=== PATIENT | male | born 1980 ===

== ENCOUNTER 2016-09-15 05:34 | Emergency (ER) | payer SELFPAY ==
--- NOTE | 2016-09-15 07:14 | Emergency Department Report ---
HPI - General Chief Complaint: Psych Time Seen by Provider: 09/15/16 06:09 - HPI HPI: This is a 36-year-old -[place] male who presents to the emergency department by EMS with the need for a mental health evaluation. The patient has some psychiatric conditions that have required inpatient admission in the past. He says that the diagnosis appears to always be changing in between schizophrenia, schizoaffective disorder, and bipolar disorder. Patient says he came in by EMS because he wants to make sure that he does not harm himself. He has an issue at home where he is constantly "banging doors" and is concerned that eventually he will hurt himself such as hurting his hand. When he is asked why he cannot just stop "banging doors" he says that it is an urge that he cannot control. He denies to any auditory hallucinations or visual hallucinations but then mentions that it is like there are people there around him telling him to do it but there is no one actually there. He denies any suicidal or homicidal ideations. Patient says that he feels like his memory has been wiped at some point and that he is having an identity crisis. The patient takes oxcarbazepine, and says he is compliant with this. ED Past Medical Hx - Past Medical History Previous Medical History?: Yes Hx Psychiatric Treatment: Yes - Social History Smoking Status: Unknown if ever smoked Substance Use Type: Prescribed ED Review of Systems ROS: Stated complaint: MH EVAL Other details as noted in HPI Comment: All other systems reviewed and negative Constitutional: denies: chills, fever Eyes: denies: eye pain, eye discharge, vision change ENT: denies: ear pain, throat pain Respiratory: denies: cough, shortness of breath, wheezing Cardiovascular: denies: chest pain, palpitations Gastrointestinal: denies: abdominal pain, nausea, diarrhea Genitourinary: denies: urgency, dysuria Musculoskeletal: denies: back pain, joint swelling, arthralgia Skin: denies: rash, lesions Neurological: denies: headache, weakness, paresthesias Psychiatric: auditory hallucinations. denies: homicidal thoughts, suicidal thoughts Physical Exam - Physical Exam Vital Signs: Vital Signs 09/15/16 09/15/16 09/15/16 06:13 06:19 06:59 Temperature 97.8 F 98.8 F Pulse Rate 74 74 Respiratory 18 18 18 Rate Blood Pressure 149/80 Blood Pressure 149/80 [Left] O2 Sat by Pulse 100 100 100 Oximetry Physical Exam: GENERAL: The patient is well-developed well-nourished. HEENT: Normocephalic. Atraumatic. Extraocular motions are intact. Patient has moist mucous membranes. Pupils equal reactive to light bilaterally. NECK: Supple. Trachea is midline. CHEST/LUNGS: Clear to auscultation. There is no respiratory distress noted. HEART/CARDIOVASCULAR: Regular. There is no tachycardia. There is no gallop rub or murmur. ABDOMEN: Abdomen is soft, nontender. Patient has normal bowel sounds. There is no abdominal distention. SKIN: There is no rash. There is no edema. There is no diaphoresis. NEURO: The patient is awake, alert, and oriented. The patient is cooperative. The patient has no focal neurologic deficits. The patient has normal speech. MUSCULOSKELETAL: There is no tenderness or deformity. There is no limitation range of motion. There is no evidence of acute injury. ED Course Vital Signs 09/15/16 09/15/16 09/15/16 06:13 06:19 06:59 Temperature 97.8 F 98.8 F Pulse Rate 74 74 Respiratory 18 18 18 Rate Blood Pressure 149/80 Blood Pressure 149/80 [Left] O2 Sat by Pulse 100 100 100 Oximetry ED Medical Decision Making - Lab Data Result diagrams: 09/15/16 07:15 09/15/16 07:15 - Medical Decision Making This is a 36-year-old male who presents to the emergency department by EMS for a mental health evaluation. The patient has a history of schizophrenia versus bipolar disorder. Patient says that he is constantly banging around on doors and furniture and that he is either unable to resist doing it because of an urge versus being told to do it by voices in his head. Patient is calm at first but does appear to have some disorganized thoughts. Patient was made a 1013 secondary to the fact that he is unable to control himself from causing bodily damage. However shortly after I finished evaluating the patient the first time, the patient became more agitated and required some isolation. Since labs show a mild leukocytosis but there is no signs of infection. No electrolyte, renal or glucose abnormalities. Blood alcohol is negative. Currently awaiting urine drug screen and urinalysis, however I do not believe that any of the results found from the urine would cause him to be medically unsuitable for psychiatric placement. Personal and feel the patient is currently medically cleared but if there is any further urinary tract infection he will be treated with antibiotics. A 1013 has been filled out and the crisis therapist has been contacted to assist with placement. - Differential Diagnosis schizophrenia, schizoaffective, bipolar, substance abuse Critical Care Time: No Critical care attestation.: If time is entered above; I have spent that time in minutes in the direct care of this critically ill patient, excluding procedure time. ED Disposition Clinical Impression: History of schizophrenia Psychosis Qualifiers: Psychosis type: unspecified psychosis type Qualified Code(s): F29 - Unspecified psychosis not due to a substance or known physiological condition Disposition: DC/TX PSY HOSP/PSY UNIT Is pt being admited?: No Condition: Stable Time of Disposition: 10:54
[2016-09-15 07:25] LABS: Basophils % (Auto) 0.6 % (0.0-1.8); Eosinophils % (Auto) 1.8 % (0.0-4.3); Hematocrit 34.9 % (35.5-45.6); Hemoglobin 11.1 gm/dl (11.8-15.2); Mean Corpuscular HGB Conc 32 % (32-34); Mean Corpuscular Hemoglobin 27 pg (28-32); Mean Corpuscular Volume 85 fl (84-94); Platelet Count 327 K/mm3 (140-440); Red Blood Count 4.13 M/mm3 (3.65-5.03); Red Cell Distribution Width 17.8 % (13.2-15.2); White Blood Count 13.1 K/mm3 (4.5-11.0)
[2016-09-15 07:44] LABS: Anion Gap 16 mmol/L; BUN/Creatinine Ratio 18.18; Blood Urea Nitrogen 20 mg/dL (9-20); Calcium 9.1 mg/dL (8.4-10.2); Carbon Dioxide 26 mmol/L (22-30); Chloride 99.8 mmol/L (98-107); Glucose 99 mg/dL (75-100); Potassium 3.8 mmol/L (3.6-5.0); Sodium 138 mmol/L (137-145)
[2016-09-16 10:43] LABS: Bilirubin,Urine NEG (Negative); Blood,Urine NEG (Negative); Ketones,Urine NEG (Negative); Leukocyte Esterase,Urine NEG (Negative); Nitrite,Urine NEG (Negative); Protein,Urine <15 mg/dL mg/dL (Negative); Urobilinogen,Urine < 2.0 mg/dL (<2.0); WBC,Urine < 1.0 /HPF (0.0-6.0)
[2016-09-16 10:57] LABS: Urine Drugs of Abuse Note Disclamer
[2016-09-16] MEDS ORDERED: NORVASC PO SCH (22:00)
[2016-09-16] MEDS ORDERED: COGENTIN PO SCH (22:00)
[2016-09-16] MEDS: PROLIXIN HCL PO SCH (23:00)
[2016-09-16] MEDS: HCTZ PO SCH (23:13)
[2016-09-16] MEDS: COGENTIN PO SCH (23:14)
[2016-09-16] MEDS: NORVASC PO SCH (23:16)
[2016-09-17] MEDS: COGENTIN PO SCH (09:56)
[2016-09-17] MEDS: NORVASC PO SCH (09:56)
[2016-09-17] MEDS: PROLIXIN HCL PO SCH (09:56)
[2016-09-17] MEDS: HCTZ PO SCH (09:56)
--- NOTE | 2016-09-17 14:50 | Event Note ---
Date: 09/17/16 Vital signs reviewed. Await psychiatric placement. Vital Signs 09/15/16 09/15/16 09/15/16 06:13 06:19 06:59 Temperature 97.8 F 98.8 F Pulse Rate 74 74 Respiratory 18 18 18 Rate Blood Pressure 149/80 Blood Pressure 149/80 [Left] O2 Sat by Pulse 100 100 100 Oximetry 09/15/16 09/16/16 09/16/16 07:28 10:00 10:34 Temperature Pulse Rate 77 Respiratory 18 18 18 Rate Blood Pressure Blood Pressure 171/90 [Left] O2 Sat by Pulse 100 98 100 Oximetry 09/16/16 09/17/16 09/17/16 22:00 08:03 09:56 Temperature 98.6 F 98.2 F Pulse Rate 60 72 Respiratory 18 18 18 Rate Blood Pressure 135/69 Blood Pressure 143/65 135/69 [Left] O2 Sat by Pulse 99 99 99 Oximetry
[2016-09-18] MEDS: COGENTIN PO SCH ×3 (00:06→22:00)
[2016-09-18] MEDS: HCTZ PO SCH (11:04)
[2016-09-18] MEDS: NORVASC PO SCH (11:04)
[2016-09-18] MEDS: PROLIXIN HCL PO SCH (11:05)
[2016-09-18] MEDS ORDERED: GEODON IM ONE (14:11)
--- NOTE | 2016-09-18 14:15 | Emergency Department Report ---
Blank Doc - Documentation Documentation: Patient's provider brings to my attention that he is agitated. I did review his records. He has acute psychosis with chronic schizophrenia/bipolar disorder. He has been given his Prolixin as well as his blood pressure medicine. He had a mildly elevated white blood cell count. I do not see any contraindications to psychiatric admission. No when necessary meds were ordered. I have ordered Geodon 10 IM now and every 12 hours as necessary. Placement should proceed.
[2016-09-18] MEDS ORDERED: WATER FOR INJ (PF) 10 ML ONE (14:16)
--- NOTE | 2016-09-19 01:31 | Event Note ---
Date: 09/19/16 Resting comfortably. Vital signs reviewed. Awaiting transfer. Vital Signs 09/15/16 09/15/16 09/15/16 06:13 06:19 06:59 Temperature 97.8 F 98.8 F Pulse Rate 74 74 Respiratory 18 18 18 Rate Blood Pressure 149/80 Blood Pressure 149/80 [Left] O2 Sat by Pulse 100 100 100 Oximetry 09/15/16 09/16/16 09/16/16 07:28 10:00 10:34 Temperature Pulse Rate 77 Respiratory 18 18 18 Rate Blood Pressure Blood Pressure 171/90 [Left] O2 Sat by Pulse 100 98 100 Oximetry 09/16/16 09/17/16 09/17/16 22:00 08:03 09:56 Temperature 98.6 F 98.2 F Pulse Rate 60 72 Respiratory 18 18 18 Rate Blood Pressure 135/69 Blood Pressure 143/65 135/69 [Left] O2 Sat by Pulse 99 99 99 Oximetry 09/17/16 09/18/16 09/18/16 19:45 09:28 09:29 Temperature 97.9 F Pulse Rate 71 Respiratory 20 16 16 Rate Blood Pressure Blood Pressure 155/84 [Left] O2 Sat by Pulse 100 100 Oximetry 09/18/16 09/18/16 09/18/16 11:04 20:13 21:00 Temperature 97.9 F Pulse Rate 71 80 Respiratory 20 20 Rate Blood Pressure 155/84 Blood Pressure 165/85 [Left] O2 Sat by Pulse 100 Oximetry
[2016-09-19] MEDS: GEODON IM PRN (09:10)
[2016-09-19] MEDS: NORVASC PO SCH (09:31)
[2016-09-19] MEDS: HCTZ PO SCH (09:31)
[2016-09-19] MEDS: COGENTIN PO SCH ×2 (09:31→22:27)
[2016-09-19] MEDS: PROLIXIN HCL PO SCH (09:31)
[2016-09-20] MEDS ORDERED: GEODON IM ONE (03:46)
[2016-09-20] MEDS ORDERED: WATER FOR INJ (PF) 10 ML ONE (03:48)
[2016-09-20] MEDS: GEODON IM PRN (04:32)
[2016-09-20] MEDS: HCTZ PO SCH (11:40)
[2016-09-20] MEDS: NORVASC PO SCH (11:40)
[2016-09-20] MEDS: COGENTIN PO SCH (11:40)
[2016-09-20 11:41] VITALS: BP 152/91
[2016-09-20] MEDS: PROLIXIN HCL PO SCH (11:41)
== END 2016-09-20 13:47 ==
LOC: ED 05:34 → EEVIPCON 05:34 → ED 09-20 13:47
DX: F29 Unspecified psychosis not due to a substance or known physiological condition (principal); F20.9 Schizophrenia, unspecified
CPT/HCPCS: 36415; 80048; 80307; 81001; 85025; 96372; 99285; G0480; J3486; 80320

== ENCOUNTER 2017-01-21 00:01 | Emergency (ER) | payer SELFPAY ==
[2017-01-21 01:07] LABS: Urine Drugs of Abuse Note Disclamer
[2017-01-21 01:13] LABS: Anion Gap 18 mmol/L; BUN/Creatinine Ratio 11.66; Blood Urea Nitrogen 14 mg/dL (9-20); Calcium 9.3 mg/dL (8.4-10.2); Carbon Dioxide 22 mmol/L (22-30); Chloride 98.4 mmol/L (98-107); Glucose 110 mg/dL (75-100); Potassium 3.9 mmol/L (3.6-5.0); Sodium 134 mmol/L (137-145)
[2017-01-21 01:24] LABS: Basophils % (Auto) 0.5 % (0.0-1.8); Eosinophils % (Auto) 1.5 % (0.0-4.3); Hematocrit 39.5 % (35.5-45.6); Hemoglobin 12.8 gm/dl (11.8-15.2); Mean Corpuscular HGB Conc 32 % (32-34); Mean Corpuscular Hemoglobin 27 pg (28-32); Mean Corpuscular Volume 85 fl (84-94); Platelet Count 266 K/mm3 (140-440); Red Blood Count 4.65 M/mm3 (3.65-5.03); Red Cell Distribution Width 15.7 % (13.2-15.2); White Blood Count 14.6 K/mm3 (4.5-11.0)
[2017-01-21 01:26] LABS: Bilirubin,Urine NEG (Negative); Blood,Urine NEG (Negative); Ketones,Urine NEG (Negative); Leukocyte Esterase,Urine NEG (Negative); Mucus,Urine FEW /HPF; Nitrite,Urine NEG (Negative); Urobilinogen,Urine < 2.0 mg/dL (<2.0)
[2017-01-21] MEDS ORDERED: CATAPRES PO ONE (12:03)
--- NOTE | 2017-01-21 12:08 | Emergency Department Report ---
HPI - General Chief Complaint: Psych Time Seen by Provider: 01/21/17 11:55 - HPI HPI: Room 6 The patient is a 36-year-old male presenting with a chief complaint. The patient appears to be rambling states that Mother's Day he suffers from insomnia. Patient states he plays the radial all night long. Patient states he feels though his family is "playing games" with him. The patient will not go into details. Patient states he been compliant with his psychiatric medication. The patient continues to ramble and sometimes incoherently. Patient denies suicidal or homicidal ideation. Patient denies auditory or visual hallucinations Location: Mental state Duration: Unknown Quality: [see above] Severity: Moderate Modifying factors: Unknown Context: [see above] Mode of transportation: [not driving] ED Past Medical Hx - Past Medical History Previous Medical History?: Yes Hx Hypertension: Yes Hx Psychiatric Treatment: Yes (bipolar) - Surgical History Past Surgical History?: No - Family History Family history: no significant - Social History Smoking Status: Never Smoker Substance Use Type: None (denies illicit drug use) - Medications Home Medications: Home Medications Medication Instructions Recorded Confirmed Last Taken Type Benztropine [Cogentin] 2 mg PO BID 09/16/16 09/16/16 Unknown History Hydrochlorothiazide 12.5 mg PO DAILY 09/16/16 09/16/16 Unknown History [Hydrochlorothiazide] amLODIPine [Norvasc] 10 mg PO DAILY 09/16/16 09/16/16 Unknown History fluPHENAZine HCL [fluPHENAZine] 10 mg PO TID 09/16/16 09/16/16 Unknown History ED Review of Systems ROS: Stated complaint: MH EVAL/BIPOLAR/CAN'T SLEEP Other details as noted in HPI Comment: All other systems reviewed and negative Constitutional: denies: chills, fever Eyes: denies: eye pain, eye discharge, vision change ENT: denies: ear pain, throat pain Respiratory: denies: cough, shortness of breath, wheezing Cardiovascular: denies: chest pain, palpitations Endocrine: no symptoms reported Gastrointestinal: denies: abdominal pain, nausea, diarrhea Genitourinary: denies: urgency, dysuria Musculoskeletal: denies: back pain, joint swelling, arthralgia Skin: denies: rash, lesions Neurological: denies: headache, weakness, paresthesias Psychiatric: other (patient appears paranoid). denies: auditory hallucinations , visual hallucinations, homicidal thoughts, suicidal thoughts Hematological/Lymphatic: denies: easy bleeding, easy bruising Physical Exam - Physical Exam Vital Signs: Vital Signs 01/21/17 00:13 Temperature 98.9 F Pulse Rate 103 H Respiratory 18 Rate Blood Pressure 182/100 O2 Sat by Pulse 100 Oximetry Physical Exam: GENERAL: The patient is well-developed well-nourished male lying on stretcher rambling with occasionally incoherent speech. [] HEENT: Normocephalic. Atraumatic. Extraocular motions are intact. Patient has moist mucous membranes. NECK: Supple. Trachea midline CHEST/LUNGS: Clear to auscultation. There is no respiratory distress noted. HEART/CARDIOVASCULAR: Regular. There is no tachycardia. There is no gallop rub or murmur. ABDOMEN: Abdomen is soft, nontender. Patient has normal bowel sounds. There is no abdominal distention. SKIN: There is no rash. There is no edema. There is no diaphoresis. NEURO: The patient is awake, and alert. The patient is cooperative. The patient has no focal neurologic deficits. The patient has normal speech. Cranial nerves II through XII grossly intact, no drift. MUSCULOSKELETAL: There is no evidence of acute injury. ED Course Vital Signs 01/21/17 00:13 Temperature 98.9 F Pulse Rate 103 H Respiratory 18 Rate Blood Pressure 182/100 O2 Sat by Pulse 100 Oximetry ED Medical Decision Making - Lab Data Result diagrams: 01/21/17 00:35 01/21/17 00:35 Laboratory Tests 01/21/17 01/21/17 01/21/17 00:35 00:35 00:35 WBC 14.6 H RBC 4.65 Hgb 12.8 Hct 39.5 MCV 85 MCH 27 L MCHC 32 RDW 15.7 H Plt Count 266 Lymph % (Auto) 29.2 Dawson % (Auto) 5.5 Eos % (Auto) 1.5 Baso % (Auto) 0.5 Lymph # 4.3 Dawson # 0.8 Eos # 0.2 Baso # 0.1 Seg Neutrophils % 63.3 Seg Neutrophils # 9.2 H Sodium 134 L Potassium 3.9 Chloride 98.4 Carbon Dioxide 22 Anion Gap 18 BUN 14 Creatinine 1.2 Estimated GFR > 60 BUN/Creatinine Ratio 11.66 Glucose 110 H Calcium 9.3 Urine Color Urine Turbidity Urine pH Ur Specific Ceiba Urine Protein Urine Glucose (UA) Urine Ketones Urine Blood Urine Nitrite Urine Bilirubin Urine Urobilinogen Ur Leukocyte Esterase Urine WBC (Auto) Urine RBC (Auto) U Epithel Cells (Auto) Urine Mucus Urine Opiates Screen Urine Methadone Screen Ur Barbiturates Screen Ur Phencyclidine Scrn Ur Amphetamines Screen U Benzodiazepines Scrn Urine Cocaine Screen U Marijuana (THC) Screen Drugs of Abuse Note Plasma/Serum Alcohol < 0.01 01/21/17 01/21/17 00:45 00:45 WBC RBC Hgb Hct MCV MCH MCHC RDW Plt Count Lymph % (Auto) Dawson % (Auto) Eos % (Auto) Baso % (Auto) Lymph # Dawson # Eos # Baso # Seg Neutrophils % Seg Neutrophils # Sodium Potassium Chloride Carbon Dioxide Anion Gap BUN Creatinine Estimated GFR BUN/Creatinine Ratio Glucose Calcium Urine Color Straw Urine Turbidity Clear Urine pH 6.0 Ur Specific Ceiba 1.004 Urine Protein 30 mg/dl Urine Glucose (UA) Neg Urine Ketones Neg Urine Blood Neg Urine Nitrite Neg Urine Bilirubin Neg Urine Urobilinogen < 2.0 Ur Leukocyte Esterase Neg Urine WBC (Auto) 1.0 Urine RBC (Auto) 2.0 U Epithel Cells (Auto) < 1.0 Urine Mucus Few Urine Opiates Screen Presumptive negative Urine Methadone Screen Presumptive negative Ur Barbiturates Screen Presumptive negative Ur Phencyclidine Scrn Presumptive negative Ur Amphetamines Screen Presumptive negative U Benzodiazepines Scrn Presumptive negative Urine Cocaine Screen Presumptive negative U Marijuana (THC) Screen Presumptive negative Drugs of Abuse Note Disclamer Plasma/Serum Alcohol - Differential Diagnosis schizophrenia Critical care attestation.: If time is entered above; I have spent that time in minutes in the direct care of this critically ill patient, excluding procedure time. ED Disposition Clinical Impression: Schizophrenia Disposition: DC/TX PSY HOSP/PSY UNIT Is pt being admited?: No Does the pt Need Aspirin: No Condition: Stable Referrals: PRIMARY CARE, [Primary Care Provider] - 3-5 Days Time of Disposition: 12:45 (awaiting acceptance)
[2017-01-21] MEDS ORDERED: ATIVAN IM PRN (12:43)
[2017-01-21] MEDS ORDERED: BENADRYL IM PRN (12:43)
[2017-01-21] MEDS ORDERED: HALDOL IM PRN (12:43)
--- NOTE | 2017-01-21 14:23 | Consultation ---
History of Present Illness - Reason for Consult Consult date: 01/21/17 Reason for consult: Mental Health Evaluation Requesting physician: GOOD DODD - Chief Complaint Chief complaint: "I just want sleep" - History of Present Psychiatric Illness The patient is a 36-year-old AA male presenting with a chief complaint of insomnia. Today patient is calm and cooperative during the assessment. He stated that he has not slept since Saturday01/16/2017. He stated that he wants to "rest." Patient has an hx of Schizoaffective DO and have not taken his medications in a couple days, per the patient. He did not want to discuss anything other than him getting a "sleep aid." He denies SI/HI's, AVH's, depression or a poor appetite. He denies a recreational drug use or alcohol consumption (etoh). Medications and Allergies Allergies Allergy/AdvReac Type Severity Reaction Status Date / Time No Known Allergies Allergy Verified 09/16/16 21:41 Home Medications Medication Instructions Recorded Confirmed Last Taken Type Benztropine [Cogentin] 2 mg PO BID 09/16/16 09/16/16 Unknown History Hydrochlorothiazide 12.5 mg PO DAILY 09/16/16 09/16/16 Unknown History [Hydrochlorothiazide] amLODIPine [Norvasc] 10 mg PO DAILY 09/16/16 09/16/16 Unknown History fluPHENAZine HCL [fluPHENAZine] 10 mg PO TID 09/16/16 09/16/16 Unknown History Active Meds: Active Medications Diphenhydramine HCl (Benadryl) 50 mg IM Q6H PRN PRN Reason: Agitation Haloperidol Lactate (Haldol) 10 mg IM Q8H PRN PRN Reason: Agitation Lorazepam (Ativan) 2 mg IM Q8H PRN PRN Reason: Agitation Past psychiatric history - Past Medical History Past Medical History: hypertension Past Surgical History: No surgical history - past Psychiatric treatment and history Psych: Bipolar, Depression psychiatric treatment history: Multiple inpatient psy services. Denies a fam psy hx. - Social History Social history: Lives alone (HS grad[employer], Some college) Mental Status Exam - Vital signs Last Vital Signs Temp 98.9 F 01/21/17 00:13 Pulse 69 01/21/17 13:51 Resp 18 01/21/17 13:51 BP 132/62 01/21/17 13:51 Pulse Ox 100 01/21/17 13:51 - Exam Narrative exam: ROS (-) depression MSE: Appearance: calm, cooperative Behavior: good eye contact Speech: regular rate and tone Mood: "okay" Affect: flat Thought Process: circumstantial Thought Content: denies SI/HI's and AH's Motor Activity: Ambulatory Cognition: A/O x3 Insight: fair Judgment: fair Results Result Diagrams: 01/21/17 00:35 01/21/17 00:35 Abnormal lab results 01/21/17 01/21/17 Range/Units 00:35 00:35 WBC 14.6 H (4.5-11.0) K/mm3 MCH 27 L (28-32) pg RDW 15.7 H (13.2-15.2) % Seg Neutrophils # 9.2 H (1.8-7.7) K/mm3 Sodium 134 L (137-145) mmol/L Glucose 110 H (75-100) mg/dL All other labs normal. Assessment and Plan Assessment and plan: Impression: Insomnia. The patient is a 36-year-old AA male presenting with a chief complaint of insomnia. Today patient is calm and cooperative during the assessment. He stated that he has not slept since Saturday01/16/2017. He stated that he wants to sleep. but cannot. Patient has an hx of Schizoaffective DO and have not taken his medications in a couple days, per the patient. UDS is clean. DD: Unspecified Mood DO Recommendation/Plan: Continue 1013 with placement to [facility] today.
[2017-01-21 17:36] VITALS: BP 139/84
[2017-01-21] MEDS ORDERED: COGENTIN PO SCH (22:00)
== END 2017-01-21 17:35 ==
LOC: ED 00:01 → EEVIPCON 00:01 → ED 17:35
DX: F20.9 Schizophrenia, unspecified (principal); I10 Essential (primary) hypertension; F31.9 Bipolar disorder, unspecified
CPT/HCPCS: 36415; 80048; 80307; 81001; 85025; 99285; G0480; 80320

== ENCOUNTER 2017-11-08 04:09 | Emergency (ER) | payer SELFPAY ==
[2017-11-08 05:55] LABS: Basophils # (Auto) 0.1 K/mm3 (0.0-0.1); Basophils % (Auto) 0.4 % (0.0-1.8); Eosinophils # (Auto) 0.2 K/mm3 (0.0-0.4); Eosinophils % (Auto) 1.4 % (0.0-4.3); Hematocrit 34.9 % (35.5-45.6); Hemoglobin 11.2 gm/dl (11.8-15.2); Lymphocytes # (Auto) 2.6 K/mm3 (1.2-5.4); Lymphocytes % (Auto) 21.8 % (13.4-35.0); Mean Corpuscular HGB Conc 32 % (32-34); Mean Corpuscular Hemoglobin 28 pg (28-32); Mean Corpuscular Volume 88 fl (84-94); Monocytes % (Auto) 8.5 % (0.0-7.3); Platelet Count 295 K/mm3 (140-440); Red Blood Count 3.96 M/mm3 (3.65-5.03); Red Cell Distribution Width 15.8 % (13.2-15.2)
[2017-11-08 06:06] LABS: BUN/Creatinine Ratio 13; Blood Urea Nitrogen 14 mg/dL (9-20); Calcium 9.3 mg/dL (8.4-10.2); Hemolysis Index 14
[2017-11-08 08:24] LABS: Bilirubin,Urine NEG (Negative); Blood,Urine SM (Negative); Color,Urine Straw (Yellow); Mucus,Urine FEW /HPF; Protein,Urine <15 mg/dL mg/dL (Negative); Urobilinogen,Urine < 2.0 mg/dL (<2.0)
[2017-11-08 08:36] LABS: Amphetamine Screen,Urine PRESUMPTIVE NEGATIVE; Benzodiazepines Screen,Urine PRESUMPTIVE NEGATIVE; Cannabinoid Screen,Urine PRESUMPTIVE NEGATIVE; Cocaine Screen,Urine PRESUMPTIVE NEGATIVE; Methadone Screen,Urine PRESUMPTIVE NEGATIVE; Opiate Screen,Urine PRESUMPTIVE NEGATIVE
[2017-11-08 11:05] VITALS: BP 178/78
--- NOTE | 2017-11-08 11:42 | Emergency Department Report ---
ED Psych HPI - General Chief Complaint: Psych Stated Complaint: JEANETTE EVFORREST Time Seen by Provider: 11/08/17 11:27 Source: patient Mode of arrival: Ambulatory Limitations: No Limitations - History of Present Illness Initial Comments: 37 yo male with a past medical history hypertension, bipolar 1, and schizoaffective disorder presents to the hospital complaining of not sleeping or eating 5 days. He states that this is beginning to affect his health. He complained of twitching 2 weeks at triage but did not complain to me of this. He complaining of mild right lateral thigh pain that he feels with ambulation only. Patient saw his psychiatrist in [place] last week and missed his Saturday (3 days ago) follow-up visit because "he could not sleep". Patient is compliant with medications including lithium. Patient is requesting food with double portions. - Related Data Home Medications Medication Instructions Recorded Confirmed Last Taken Benztropine [Cogentin] 2 mg PO BID 09/16/16 09/16/16 Unknown Hydrochlorothiazide 12.5 mg PO DAILY 09/16/16 09/16/16 Unknown amLODIPine [Norvasc] 10 mg PO DAILY 09/16/16 09/16/16 Unknown fluPHENAZine HCL [fluPHENAZine] 10 mg PO TID 09/16/16 09/16/16 Unknown Previous Rx's Medication Instructions Recorded Last Taken Type hydrOXYzine PAMOATE [Vistaril] 25 mg PO HS PRN #20 capsule 11/08/17 Unknown Rx Allergies Allergy/AdvReac Type Severity Reaction Status Date / Time No Known Allergies Allergy Verified 09/16/16 21:41 ED Review of Systems ROS: Stated complaint: EVAL Other details as noted in HPI Comment: All other systems reviewed and negative Other: Constitutional: No fevers chills Eyes: No eye pain visual changes ENT: No ear pain or throat pain Neck: Denies pain Respiratory: Denies cough wheezing shortness of breath Cardiovascular: Denies chest pain, palpitations, syncope GI: Denies abdominal pain, nausea, vomiting, diarrhea : Denies dysuria Musculoskeletal: as per hpi Skin: Denies rash, lesions, erythema Neurologic: Denies headache, numbness, weakness Psychiatric: Denies suicidal ideation, hallucinations ED Past Medical Hx - Past Medical History Previous Medical History?: Yes Hx Hypertension: Yes Hx Psychiatric Treatment: Yes (bipolar) - Surgical History Past Surgical History?: No - Social History Smoking Status: Never Smoker Substance Use Type: None - Medications Home Medications: Home Medications Medication Instructions Recorded Confirmed Last Taken Type Benztropine [Cogentin] 2 mg PO BID 09/16/16 09/16/16 Unknown History Hydrochlorothiazide 12.5 mg PO DAILY 09/16/16 09/16/16 Unknown History amLODIPine [Norvasc] 10 mg PO DAILY 09/16/16 09/16/16 Unknown History fluPHENAZine HCL [fluPHENAZine] 10 mg PO TID 09/16/16 09/16/16 Unknown History hydrOXYzine PAMOATE [Vistaril] 25 mg PO HS PRN #20 capsule 11/08/17 Unknown Rx ED Physical Exam - General Limitations: No Limitations - Other Other exam information: General: No limitations, patient is alert in no acute distress Head exam: Atraumatic, normocephalic Eyes exam: Normal appearance ENT: Moist mucous membrane, normal oropharynx Neck exam: Normal inspection, full range of motion, no meningismus nontender Respiratory exam: Clear to auscultation bilateral, no wheezes, rales, crackles Cardiovascular: Normal rate and rhythm, normal heart sounds Abdomen: Soft, nondistended, and nontender, with normal bowel sounds, no rebound, or guarding Extremity: Full range of motion normal inspection no deformity, nontender, no edema or leg asymmetry Back: Normal Inspection, full range of motion, no tenderness Neurologic: Alert, oriented x3, cranial nerves intact, no motor or sensory deficit Psychiatric: normal affect, normal mood Skin: Warm, dry, intact ED Course Vital Signs 11/08/17 11/08/17 05:09 11:04 Temperature 99.1 F 98.8 F Pulse Rate 72 79 Respiratory 20 20 Rate Blood Pressure 157/82 Blood Pressure 178/78 [Right] O2 Sat by Pulse 99 97 Oximetry - Consultations Consultation #1: 11/08/17 11:43 Requested for mental health road passenger firer Mary to speak to pt ED Medical Decision Making - Lab Data Result diagrams: 11/08/17 05:20 11/08/17 05:20 Lab Results 11/08/17 11/08/17 11/08/17 Range/Units 05:20 05:20 05:20 WBC (4.5-11.0) K/mm3 RBC (3.65-5.03) M/mm3 Hgb (11.8-15.2) gm/dl Hct (35.5-45.6) % MCV (84-94) fl MCH (28-32) pg MCHC (32-34) % RDW (13.2-15.2) % Plt Count (140-440) K/mm3 Lymph % (Auto) (13.4-35.0) % [place] % (Auto) (0.0-7.3) % Eos % (Auto) (0.0-4.3) % Baso % (Auto) (0.0-1.8) % Lymph # (1.2-5.4) K/mm3 [place] # (0.0-0.8) K/mm3 Eos # (0.0-0.4) K/mm3 Baso # (0.0-0.1) K/mm3 Seg Neutrophils % (40.0-70.0) % Seg Neutrophils # (1.8-7.7) K/mm3 Sodium 138 (137-145) mmol/L Potassium 3.8 (3.6-5.0) mmol/L Chloride 97.9 L (98-107) mmol/L Carbon Dioxide 25 (22-30) mmol/L Anion Gap 19 mmol/L BUN 14 (9-20) mg/dL Creatinine 1.1 (0.8-1.5) mg/dL Estimated GFR > 60 ml/min BUN/Creatinine Ratio 13 % Glucose 108 H (75-100) mg/dL Calcium 9.3 (8.4-10.2) mg/dL Urine Color (Yellow) Urine Turbidity (Clear) Urine pH (5.0-7.0) Ur Specific [place] (1.003-1.030) Urine Protein (Negative) mg/dL Urine Glucose (UA) (Negative) mg/dL Urine Ketones (Negative) mg/dL Urine Blood (Negative) Urine Nitrite (Negative) Urine Bilirubin (Negative) Urine Urobilinogen (<2.0) mg/dL Ur Leukocyte Esterase (Negative) Urine WBC (Auto) (0.0-6.0) /HPF Urine RBC (Auto) (0.0-6.0) /HPF U Epithel Cells (Auto) (0-13.0) /HPF Urine Mucus /HPF Salicylates < 0.3 L (2.8-20.0) mg/dL Urine Opiates Screen Urine Methadone Screen Acetaminophen (10.0-30.0) ug/mL Ur Barbiturates Screen Valproic Acid (50-100) ug/mL Ur Phencyclidine Scrn Ur Amphetamines Screen U Benzodiazepines Scrn [place] (0.0-1.2) mmol/L Urine Cocaine Screen U Marijuana (THC) Screen Drugs of Abuse Note Plasma/Serum Alcohol < 0.01 (0-0.07) % 11/08/17 11/08/17 11/08/17 Range/Units 05:20 05:20 05:29 WBC 12.0 H (4.5-11.0) K/mm3 RBC 3.96 (3.65-5.03) M/mm3 Hgb 11.2 L (11.8-15.2) gm/dl Hct 34.9 L (35.5-45.6) % MCV 88 (84-94) fl MCH 28 (28-32) pg MCHC 32 (32-34) % RDW 15.8 H (13.2-15.2) % Plt Count 295 (140-440) K/mm3 Lymph % (Auto) 21.8 (13.4-35.0) % [place] % (Auto) 8.5 H (0.0-7.3) % Eos % (Auto) 1.4 (0.0-4.3) % Baso % (Auto) 0.4 (0.0-1.8) % Lymph # 2.6 (1.2-5.4) K/mm3 [place] # 1.0 H (0.0-0.8) K/mm3 Eos # 0.2 (0.0-0.4) K/mm3 Baso # 0.1 (0.0-0.1) K/mm3 Seg Neutrophils % 67.9 (40.0-70.0) % Seg Neutrophils # 8.1 H (1.8-7.7) K/mm3 Sodium (137-145) mmol/L Potassium (3.6-5.0) mmol/L Chloride (98-107) mmol/L Carbon Dioxide (22-30) mmol/L Anion Gap mmol/L BUN (9-20) mg/dL Creatinine (0.8-1.5) mg/dL Estimated GFR ml/min BUN/Creatinine Ratio % Glucose (75-100) mg/dL Calcium (8.4-10.2) mg/dL Urine Color (Yellow) Urine Turbidity (Clear) Urine pH (5.0-7.0) Ur Specific [place] (1.003-1.030) Urine Protein (Negative) mg/dL Urine Glucose (UA) (Negative) mg/dL Urine Ketones (Negative) mg/dL Urine Blood (Negative) Urine Nitrite (Negative) Urine Bilirubin (Negative) Urine Urobilinogen (<2.0) mg/dL Ur Leukocyte Esterase (Negative) Urine WBC (Auto) (0.0-6.0) /HPF Urine RBC (Auto) (0.0-6.0) /HPF U Epithel Cells (Auto) (0-13.0) /HPF Urine Mucus /HPF Salicylates (2.8-20.0) mg/dL Urine Opiates Screen Urine Methadone Screen Acetaminophen 15.0 (10.0-30.0) ug/mL Ur Barbiturates Screen Valproic Acid 82.1 (50-100) ug/mL Ur Phencyclidine Scrn Ur Amphetamines Screen U Benzodiazepines Scrn [place] 0.7 (0.0-1.2) mmol/L Urine Cocaine Screen U Marijuana (THC) Screen Drugs of Abuse Note Plasma/Serum Alcohol (0-0.07) % 11/08/17 11/08/17 Range/Units Unknown Unknown WBC (4.5-11.0) K/mm3 RBC (3.65-5.03) M/mm3 Hgb (11.8-15.2) gm/dl Hct (35.5-45.6) % MCV (84-94) fl MCH (28-32) pg MCHC (32-34) % RDW (13.2-15.2) % Plt Count (140-440) K/mm3 Lymph % (Auto) (13.4-35.0) % [place] % (Auto) (0.0-7.3) % Eos % (Auto) (0.0-4.3) % Baso % (Auto) (0.0-1.8) % Lymph # (1.2-5.4) K/mm3 [place] # (0.0-0.8) K/mm3 Eos # (0.0-0.4) K/mm3 Baso # (0.0-0.1) K/mm3 Seg Neutrophils % (40.0-70.0) % Seg Neutrophils # (1.8-7.7) K/mm3 Sodium (137-145) mmol/L Potassium (3.6-5.0) mmol/L Chloride (98-107) mmol/L Carbon Dioxide (22-30) mmol/L Anion Gap mmol/L BUN (9-20) mg/dL Creatinine (0.8-1.5) mg/dL Estimated GFR ml/min BUN/Creatinine Ratio % Glucose (75-100) mg/dL Calcium (8.4-10.2) mg/dL Urine Color Straw (Yellow) Urine Turbidity Clear (Clear) Urine pH 6.0 (5.0-7.0) Ur Specific [place] 1.002 L (1.003-1.030) Urine Protein <15 mg/dl (Negative) mg/dL Urine Glucose (UA) Neg (Negative) mg/dL Urine Ketones Neg (Negative) mg/dL Urine Blood Sm (Negative) Urine Nitrite Neg (Negative) Urine Bilirubin Neg (Negative) Urine Urobilinogen < 2.0 (<2.0) mg/dL Ur Leukocyte Esterase Neg (Negative) Urine WBC (Auto) 1.0 (0.0-6.0) /HPF Urine RBC (Auto) 1.0 (0.0-6.0) /HPF U Epithel Cells (Auto) < 1.0 (0-13.0) /HPF Urine Mucus Few /HPF Salicylates (2.8-20.0) mg/dL Urine Opiates Screen Presumptive negative Urine Methadone Screen Presumptive negative Acetaminophen (10.0-30.0) ug/mL Ur Barbiturates Screen Presumptive negative Valproic Acid (50-100) ug/mL Ur Phencyclidine Scrn Presumptive negative Ur Amphetamines Screen Presumptive negative U Benzodiazepines Scrn Presumptive negative [place] (0.0-1.2) mmol/L Urine Cocaine Screen Presumptive negative U Marijuana (THC) Screen Presumptive negative Drugs of Abuse Note Disclamer Plasma/Serum Alcohol (0-0.07) % - Medical Decision Making Patient seen and evaluated by Mary with mental health who agrees the patient does not meet any criteria for emergent 1013. He does not complain of suicidal or homicidal ideation. Patient does have some delusions but does not appear to be a danger to himself or others. Patient states he is complaint with his medication. Encouraged to follow-up with his psychiatrist on Saturday. He will be prescribed Vistaril to take at night for sleep and to follow-up with his psychiatrist early next week. Patient only placed on Vistaril 25 mg at bed time since he already takes Cogentin 2 mg twice a day which is also and anticholinergic - Differential Diagnosis psychosis, bipolar, schizoaffective disorder, insomnia Critical Care Time: No Critical care attestation.: If time is entered above; I have spent that time in minutes in the direct care of this critically ill patient, excluding procedure time. ED Disposition Clinical Impression: Bipolar disorder, Schizoaffective disorder, HTN (hypertension), Delusion, Insomnia Disposition: TO HOME OR SELFCARE Is pt being admited?: No Does the pt Need Aspirin: No Condition: Stable Instructions: Hypertension (ED), Insomnia (ED), Schizoaffective Disorder (ED), Bipolar Disorder (ED) Additional Instructions: Take the prescribed medication at bedtime to help with sleep. Follow-up with your psychiatrist early next week. Return if symptoms worsen Prescriptions: hydrOXYzine PAMOATE [Vistaril] 25 mg PO HS PRN #20 capsule PRN Reason: Insomnia Referrals: PRIMARY CARE,MD [Primary Care Provider] - 3-5 Days your, psychiatrist [Other] - 3-5 Days Time of Disposition: 13:21
== END 2017-11-08 13:30 | disposition home or self-care (01) ==
LOC: ED 04:09
DX: G47.00 Insomnia, unspecified (principal); F31.9 Bipolar disorder, unspecified; F25.9 Schizoaffective disorder, unspecified; F22 Delusional disorders; M79.651 Pain in right thigh; I10 Essential (primary) hypertension; Z79.899 Other long term (current) drug therapy
CPT/HCPCS: 36415; 80048; 80164; 80178; 80307; 81001; 85025; 99284; G0480; 80320

== ENCOUNTER 2019-07-26 03:22 | Emergency (ER) | payer OTHER ==
[2019-07-26 04:21] LABS: Basophils # (Auto) 0.1 K/mm3 (0.0-0.1); Eosinophils # (Auto) 0.3 K/mm3 (0.0-0.4); Eosinophils % (Auto) 3.1 % (0.0-4.3); Hematocrit 34.6 % (35.5-45.6); Hemoglobin 11.4 gm/dl (11.8-15.2); Lymphocytes # (Auto) 4.1 K/mm3 (1.2-5.4); Lymphocytes % (Auto) 37.8 % (13.4-35.0); Mean Corpuscular HGB Conc 33 % (32-34); Mean Corpuscular Volume 91 fl (84-94); Monocytes # (Auto) 0.7 K/mm3 (0.0-0.8); Monocytes % (Auto) 6.7 % (0.0-7.3); Platelet Count 292 K/mm3 (140-440); Red Blood Count 3.78 M/mm3 (3.65-5.03); Red Cell Distribution Width 15.6 % (13.2-15.2)
[2019-07-26 04:30] LABS: Calcium 8.9 mg/dL (8.4-10.2)
[2019-07-26 04:42] LABS: Bilirubin,Urine NEG (Negative); Blood,Urine NEG (Negative); Color,Urine Colorless (Yellow); Mucus,Urine FEW /HPF; Protein,Urine <15 mg/dL mg/dL (Negative); RBC,Urine < 1.0 /HPF (0.0-6.0); Urobilinogen,Urine < 2.0 mg/dL (<2.0); WBC,Urine < 1.0 /HPF (0.0-6.0)
[2019-07-26 04:49] LABS: Amphetamine Screen,Urine PRESUMPTIVE NEGATIVE; Benzodiazepines Screen,Urine PRESUMPTIVE NEGATIVE; Cannabinoid Screen,Urine PRESUMPTIVE NEGATIVE; Cocaine Screen,Urine PRESUMPTIVE NEGATIVE; Methadone Screen,Urine PRESUMPTIVE NEGATIVE; Opiate Screen,Urine PRESUMPTIVE NEGATIVE
--- NOTE | 2019-07-26 06:33 | Emergency Department Report ---
ED General Adult HPI - General Chief complaint: Psych Stated complaint: BLOOD PRESSURE Time Seen by Provider: 07/26/19 05:45 Source: patient Mode of arrival: Ambulatory Limitations: No Limitations - History of Present Illness Initial comments: The patient presents to the emergency department with a chief complaint of elevated blood pressure. She states she has a history of bipolar 1 schizoaffective disorder with his medications for his psychiatric history. Patient denies suicidal or homicidal ideation and also denies auditory or visual hallucinations. Patient states that he still she'll for his blood pressure. Patient denies chest pain, shortness breath, or abdominal pain. -: unknown Severity scale (0 -10): 0 Consistency: constant Improves with: none Worsens with: none Associated Symptoms: denies other symptoms Treatments Prior to Arrival: none - Related Data Home Medications Medication Instructions Recorded Confirmed Last Taken Benztropine [Cogentin] 2 mg PO BID 09/16/16 07/26/19 Unknown Hydrochlorothiazide 12.5 mg PO DAILY 09/16/16 07/26/19 Unknown amLODIPine [Norvasc] 10 mg PO DAILY 09/16/16 07/26/19 Unknown fluPHENAZine HCl [fluPHENAZine] 10 mg PO TID 09/16/16 07/26/19 Unknown Previous Rx's Medication Instructions Recorded Last Taken Type hydrOXYzine PAMOATE [Vistaril] 25 mg PO HS PRN #20 capsule 11/08/17 Unknown Rx hydroCHLOROthiazide [Hctz] 12.5 mg PO QDAY #30 capsule 07/26/19 Unknown Rx Allergies Allergy/AdvReac Type Severity Reaction Status Date / Time No Known Allergies Allergy Verified 09/16/16 21:41 ED Review of Systems ROS: Stated complaint: BLOOD PRESSURE Other details as noted in HPI Comment: All other systems reviewed and negative Constitutional: denies: chills, fever Eyes: denies: eye pain, eye discharge, vision change ENT: denies: ear pain, throat pain Respiratory: denies: cough, shortness of breath, wheezing Cardiovascular: denies: chest pain, palpitations Endocrine: no symptoms reported Gastrointestinal: denies: abdominal pain, nausea, diarrhea Genitourinary: denies: urgency, dysuria Musculoskeletal: denies: back pain, joint swelling, arthralgia Skin: denies: rash, lesions Neurological: denies: headache, weakness, paresthesias Psychiatric: denies: anxiety, depression Hematological/Lymphatic: denies: easy bleeding, easy bruising ED Past Medical Hx - Past Medical History Hx Hypertension: Yes Hx Psychiatric Treatment: Yes (bipolar, schizoaffective) - Social History Smoking Status: Never Smoker - Medications Home Medications: Home Medications Medication Instructions Recorded Confirmed Last Taken Type Benztropine [Cogentin] 2 mg PO BID 09/16/16 07/26/19 Unknown History Hydrochlorothiazide 12.5 mg PO DAILY 09/16/16 07/26/19 Unknown History amLODIPine [Norvasc] 10 mg PO DAILY 09/16/16 07/26/19 Unknown History fluPHENAZine HCl [fluPHENAZine] 10 mg PO TID 09/16/16 07/26/19 Unknown History hydrOXYzine PAMOATE [Vistaril] 25 mg PO HS PRN #20 capsule 11/08/17 07/26/19 Unknown Rx hydroCHLOROthiazide [Hctz] 12.5 mg PO QDAY #30 capsule 07/26/19 Unknown Rx ED Physical Exam - General Limitations: No Limitations General appearance: alert, in no apparent distress - Head Head exam: Present: atraumatic, normocephalic - Eye Eye exam: Present: normal appearance, PERRL, EOMI - ENT ENT exam: Present: mucous membranes moist - Neck Neck exam: Present: normal inspection - Respiratory Respiratory exam: Present: normal lung sounds bilaterally. Absent: respiratory distress - Cardiovascular Cardiovascular Exam: Present: regular rate, normal rhythm. Absent: systolic murmur, diastolic murmur, rubs, gallop - GI/Abdominal GI/Abdominal exam: Present: soft, normal bowel sounds - Rectal Rectal exam: Present: deferred - Extremities Exam Extremities exam: Present: normal inspection - Back Exam Back exam: Present: normal inspection - Neurological Exam Neurological exam: Present: alert, oriented X3, CN II-XII intact. Absent: motor sensory deficit - Psychiatric Psychiatric exam: Present: normal affect, normal mood. Absent: homicidal ideation, suicidal ideation - Skin Skin exam: Present: warm, dry, intact, normal color. Absent: rash ED Course Vital Signs 07/26/19 07/26/19 07/26/19 03:27 03:36 04:29 Temperature 98.7 F 98.7 F 98.9 F Pulse Rate 96 H 91 H 83 Respiratory 18 18 18 Rate Blood Pressure 194/115 194/115 Blood Pressure 154/105 [Left] Blood Pressure 160/102 [Right] O2 Sat by Pulse 99 100 100 Oximetry ED Medical Decision Making - Lab Data Result diagrams: 07/26/19 03:49 07/26/19 03:49 Lab Results 07/26/19 07/26/19 07/26/19 Range/Units 03:38 03:38 03:49 WBC (4.5-11.0) K/mm3 RBC (3.65-5.03) M/mm3 Hgb (11.8-15.2) gm/dl Hct (35.5-45.6) % MCV (84-94) fl MCH (28-32) pg MCHC (32-34) % RDW (13.2-15.2) % Plt Count (140-440) K/mm3 Lymph % (Auto) (13.4-35.0) % [place] % (Auto) (0.0-7.3) % Eos % (Auto) (0.0-4.3) % Baso % (Auto) (0.0-1.8) % Lymph # (1.2-5.4) K/mm3 [place] # (0.0-0.8) K/mm3 Eos # (0.0-0.4) K/mm3 Baso # (0.0-0.1) K/mm3 Seg Neutrophils % (40.0-70.0) % Seg Neutrophils # (1.8-7.7) K/mm3 Sodium (137-145) mmol/L Potassium (3.6-5.0) mmol/L Chloride (98-107) mmol/L Carbon Dioxide (22-30) mmol/L Anion Gap mmol/L BUN (9-20) mg/dL Creatinine (0.8-1.5) mg/dL Estimated GFR ml/min BUN/Creatinine Ratio % Glucose (75-100) mg/dL Calcium (8.4-10.2) mg/dL Urine Color Colorless (Yellow) Urine Turbidity Clear (Clear) Urine pH 7.0 (5.0-7.0) Ur Specific [place] 1.002 L (1.003-1.030) Urine Protein <15 mg/dl (Negative) mg/dL Urine Glucose (UA) Neg (Negative) mg/dL Urine Ketones Neg (Negative) mg/dL Urine Blood Neg (Negative) Urine Nitrite Neg (Negative) Urine Bilirubin Neg (Negative) Urine Urobilinogen < 2.0 (<2.0) mg/dL Ur Leukocyte Esterase Neg (Negative) Urine WBC (Auto) < 1.0 (0.0-6.0) /HPF Urine RBC (Auto) < 1.0 (0.0-6.0) /HPF Urine Mucus Few /HPF Salicylates < 0.3 L (2.8-20.0) mg/dL Urine Opiates Screen Presumptive negative Urine Methadone Screen Presumptive negative Acetaminophen (10.0-30.0) ug/mL Ur Barbiturates Screen Presumptive negative Ur Phencyclidine Scrn Presumptive negative Ur Amphetamines Screen Presumptive negative U Benzodiazepines Scrn Presumptive negative Urine Cocaine Screen Presumptive negative U Marijuana (THC) Screen Presumptive negative Drugs of Abuse Note Disclamer Plasma/Serum Alcohol (0-0.07) % 07/26/19 07/26/19 07/26/19 Range/Units 03:49 03:49 03:49 WBC (4.5-11.0) K/mm3 RBC (3.65-5.03) M/mm3 Hgb (11.8-15.2) gm/dl Hct (35.5-45.6) % MCV (84-94) fl MCH (28-32) pg MCHC (32-34) % RDW (13.2-15.2) % Plt Count (140-440) K/mm3 Lymph % (Auto) (13.4-35.0) % [place] % (Auto) (0.0-7.3) % Eos % (Auto) (0.0-4.3) % Baso % (Auto) (0.0-1.8) % Lymph # (1.2-5.4) K/mm3 [place] # (0.0-0.8) K/mm3 Eos # (0.0-0.4) K/mm3 Baso # (0.0-0.1) K/mm3 Seg Neutrophils % (40.0-70.0) % Seg Neutrophils # (1.8-7.7) K/mm3 Sodium 137 (137-145) mmol/L Potassium 4.0 (3.6-5.0) mmol/L Chloride 103.7 (98-107) mmol/L Carbon Dioxide 21 L (22-30) mmol/L Anion Gap 16 mmol/L BUN 10 (9-20) mg/dL Creatinine 1.5 (0.8-1.5) mg/dL Estimated GFR 53 ml/min BUN/Creatinine Ratio 7 % Glucose 126 H (75-100) mg/dL Calcium 8.9 (8.4-10.2) mg/dL Urine Color (Yellow) Urine Turbidity (Clear) Urine pH (5.0-7.0) Ur Specific [place] (1.003-1.030) Urine Protein (Negative) mg/dL Urine Glucose (UA) (Negative) mg/dL Urine Ketones (Negative) mg/dL Urine Blood (Negative) Urine Nitrite (Negative) Urine Bilirubin (Negative) Urine Urobilinogen (<2.0) mg/dL Ur Leukocyte Esterase (Negative) Urine WBC (Auto) (0.0-6.0) /HPF Urine RBC (Auto) (0.0-6.0) /HPF Urine Mucus /HPF Salicylates (2.8-20.0) mg/dL Urine Opiates Screen Urine Methadone Screen Acetaminophen < 5.0 L (10.0-30.0) ug/mL Ur Barbiturates Screen Ur Phencyclidine Scrn Ur Amphetamines Screen U Benzodiazepines Scrn Urine Cocaine Screen U Marijuana (THC) Screen Drugs of Abuse Note Plasma/Serum Alcohol 0.01 (0-0.07) % 07/26/19 Range/Units 03:49 WBC 10.8 (4.5-11.0) K/mm3 RBC 3.78 (3.65-5.03) M/mm3 Hgb 11.4 L (11.8-15.2) gm/dl Hct 34.6 L (35.5-45.6) % MCV 91 (84-94) fl MCH 30 (28-32) pg MCHC 33 (32-34) % RDW 15.6 H (13.2-15.2) % Plt Count 292 (140-440) K/mm3 Lymph % (Auto) 37.8 H (13.4-35.0) % [place] % (Auto) 6.7 (0.0-7.3) % Eos % (Auto) 3.1 (0.0-4.3) % Baso % (Auto) 1.0 (0.0-1.8) % Lymph # 4.1 (1.2-5.4) K/mm3 [place] # 0.7 (0.0-0.8) K/mm3 Eos # 0.3 (0.0-0.4) K/mm3 Baso # 0.1 (0.0-0.1) K/mm3 Seg Neutrophils % 51.4 (40.0-70.0) % Seg Neutrophils # 5.6 (1.8-7.7) K/mm3 Sodium (137-145) mmol/L Potassium (3.6-5.0) mmol/L Chloride (98-107) mmol/L Carbon Dioxide (22-30) mmol/L Anion Gap mmol/L BUN (9-20) mg/dL Creatinine (0.8-1.5) mg/dL Estimated GFR ml/min BUN/Creatinine Ratio % Glucose (75-100) mg/dL Calcium (8.4-10.2) mg/dL Urine Color (Yellow) Urine Turbidity (Clear) Urine pH (5.0-7.0) Ur Specific [place] (1.003-1.030) Urine Protein (Negative) mg/dL Urine Glucose (UA) (Negative) mg/dL Urine Ketones (Negative) mg/dL Urine Blood (Negative) Urine Nitrite (Negative) Urine Bilirubin (Negative) Urine Urobilinogen (<2.0) mg/dL Ur Leukocyte Esterase (Negative) Urine WBC (Auto) (0.0-6.0) /HPF Urine RBC (Auto) (0.0-6.0) /HPF Urine Mucus /HPF Salicylates (2.8-20.0) mg/dL Urine Opiates Screen Urine Methadone Screen Acetaminophen (10.0-30.0) ug/mL Ur Barbiturates Screen Ur Phencyclidine Scrn Ur Amphetamines Screen U Benzodiazepines Scrn Urine Cocaine Screen U Marijuana (THC) Screen Drugs of Abuse Note Plasma/Serum Alcohol (0-0.07) % Critical care attestation.: If time is entered above; I have spent that time in minutes in the direct care of this critically ill patient, excluding procedure time. ED Disposition Clinical Impression: Elevated BP without diagnosis of hypertension Disposition: DC-01 TO HOME OR SELFCARE Is pt being admited?: No Does the pt Need Aspirin: No Condition: Stable Instructions: Hypertension (ED) Additional Instructions: return if worse Prescriptions: hydroCHLOROthiazide [Hctz] 12.5 mg PO QDAY #30 capsule Referrals: PRIMARY CARE,MD [Primary Care Provider] - 3-5 Days [facility] [Provider Group] - 3-5 Days [facility] [Provider Group] - 3-5 Days Time of Disposition: 06:32
--- NOTE | 2019-07-26 21:19 | Consultation ---
History of Present Illness - Reason for Consult Consult date: 07/26/19 Reason for consult: psychiatric evaluation - Chief Complaint Chief complaint: "I was not eating good." He presented to the ER for HTN and was seen for psychiatric evaluation in the ER . He was noted by staff to be delusional upon arrival complaining that there was water dripping from his hands. During the course of evaluation the Pt became belligerent with attending MD as he felt that the staff here was not addressing these fluids. He reported the same to this [employer]. He states "It has evolved" when talking about his mental health. He reports being on prolixin LEVY q 2 weeks 25mg, zyprexa 2.5-5mg hs, cogentin 2mg am and 1mg hs, lithium 300mg qam and 600mg hs and depakote 1000mg bid. 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 He says he has conversations and answers himself. Some answers were not logical. - History of Present Psychiatric Illness He denies a recreational drug use or alcohol consumption (etoh). Past psychiatric history - Past Medical History Past Medical History: hypertension Past Surgical History: No surgical history - past Psychiatric treatment and history Psych: Bipolar, Depression psychiatric treatment history: Multiple inpatient psy services. Denies a fam psy hx. - Social History Social history: Lives alone (HS grad[employer], Some college) Mental Status Exam Narrative exam: ROS (-) depression MSE: Appearance: calm, cooperative Behavior: good eye contact Speech: regular rate and tone Mood: "okay" Affect: flat Thought Process: circumstantial, loose associations Thought Content: denies SI/HI's and AH's Motor Activity: Ambulatory Cognition: A/O x3 Insight: fair Judgment: fair Assessment and Plan Assessment and plan: Impression: hx of Schizoaffective DO currently is exhibiting signs of psychosis UDS is clean. DD: Unspecified Mood DO Recommendation/Plan: Continue 1013 restart home meds: lithium and depakote levels ordered prolixin is due 07/29/2019 dispo-inpatient psychiatric hospital will staff with Dr. Linares Medications and Allergies Allergies Allergy/AdvReac Type Severity Reaction Status Date / Time No Known Allergies Allergy Verified 09/16/16 21:41 Home Medications Medication Instructions Recorded Confirmed Last Taken Type Benztropine [Cogentin] 2 mg PO BID 09/16/16 07/26/19 Unknown History Hydrochlorothiazide 12.5 mg PO DAILY 09/16/16 07/26/19 Unknown History amLODIPine [Norvasc] 10 mg PO DAILY 09/16/16 07/26/19 Unknown History fluPHENAZine HCl [fluPHENAZine] 10 mg PO TID 09/16/16 07/26/19 Unknown History hydrOXYzine PAMOATE [Vistaril] 25 mg PO HS PRN #20 capsule 11/08/17 07/26/19 Unknown Rx hydroCHLOROthiazide [Hctz] 12.5 mg PO QDAY #30 capsule 07/26/19 Unknown Rx Mental Status Exam - Vital signs Last Vital Signs Temp 98.0 F 07/26/19 19:10 Pulse 66 07/26/19 19:10 Resp 18 07/26/19 19:10 BP 171/67 07/26/19 19:10 Pulse Ox 100 07/26/19 19:10 Results Result Diagrams: 07/26/19 03:49 07/26/19 03:49 Abnormal lab results 07/26/19 07/26/19 07/26/19 Range/Units 03:38 03:49 03:49 Hgb (11.8-15.2) gm/dl Hct (35.5-45.6) % RDW (13.2-15.2) % Lymph % (Auto) (13.4-35.0) % Carbon Dioxide (22-30) mmol/L Glucose (75-100) mg/dL Ur Specific [place] 1.002 L (1.003-1.030) Salicylates < 0.3 L (2.8-20.0) mg/dL Acetaminophen < 5.0 L (10.0-30.0) ug/mL 07/26/19 07/26/19 Range/Units 03:49 03:49 Hgb 11.4 L (11.8-15.2) gm/dl Hct 34.6 L (35.5-45.6) % RDW 15.6 H (13.2-15.2) % Lymph % (Auto) 37.8 H (13.4-35.0) % Carbon Dioxide 21 L (22-30) mmol/L Glucose 126 H (75-100) mg/dL Ur Specific [place] (1.003-1.030) Salicylates (2.8-20.0) mg/dL Acetaminophen (10.0-30.0) ug/mL All other labs normal.
[2019-07-26] MEDS ORDERED: BENZTROPINE 1 MG TAB PO SCH (22:00)
[2019-07-26] MEDS: DIVALPROEX DR 500 MG TAB PO SCH (22:46)
[2019-07-26] MEDS: LITHIUM CARBONATE 300 MG CAP PO SCH (22:46)
[2019-07-27] MEDS ORDERED: LORazepam 2 MG/ML VIAL IM ONE (01:24)
[2019-07-27] MEDS ORDERED: LORazepam 2 MG/ML VIAL ONE (01:27)
[2019-07-27 07:29] LABS: Alanine Aminotransferase 17 units/L (7-56); Albumin 3.2 g/dL (3.9-5)
[2019-07-27 07:31] LABS: Bilirubin,Direct < 0.2 mg/dL (0-0.2)
--- NOTE | 2019-07-27 09:25 | Progress Note ---
Subjective - Reason for Consult Consult date: 07/27/19 Reason for consult: Psychiatry Follow-up - Chief Complaint Chief complaint: "I was not sleeping" #9 y.o. AA male who presented to the ER for elevated BP. the patient was being discharged and he became aggressive with psychosis per the record. Today the patient was calm and cooperative during the assessment. He stated that he had not had much sleep prior to arriving to the ER/ He stated that he cannot explain why he had not slept in 2 days. He was asked about his BP, he stated, "It's known to go up and down." He was able to answer most questions logically. He denies SI/HI's and AVH's. He denies any side effects from his medication. Mental Status Exam - Vital signs Last Vital Signs Temp 98.0 F 07/27/19 08:32 Pulse 80 07/27/19 08:32 Resp 18 07/27/19 02:17 BP 139/77 07/27/19 08:32 Pulse Ox 100 07/27/19 08:32 - Exam Narrative exam: MSE: Appearance: calm, cooperative Behavior: regular eye contact Speech: regular rate and tone Mood: "okay" Affect: congruent to mood Thought Process: circumstantial Thought Content: denies SI/HI's and AVH's Motor Activity: lying in bed Cognition: A/O x 3 Insight: variable to fair Judgment: fair Assessment and Plan Impression: Unspecified Psychosis. Today the patient was calm and cooperative during the assessment. DDx: Schizophrenia, Bipolar DO with psychosis Recommendation/Plan: Reevaluate the patient's 1013 in 24 hours. Continue [place] 300 mg PO HS/[place] 600 mg PO daily for mood, Zyprexa 5 mg PO HS, modify Cogentin to 2 mg PO HS for EPS prevention, Depakote 1000 mg PO BID for mood. D iscussed possible metabolic side effects of Zyprexa with the patient, he verbalized understanding. Dispo: The patient can follow up with [facility] for outpatient psy/rehab services. Will staff with Dr Aj Linares.
[2019-07-27 10:01] LABS: Chol/HDL Ratio 5.02 %
[2019-07-27] MEDS: amLODIPine 10 MG TAB PO SCH (10:28)
[2019-07-27] MEDS: DIVALPROEX DR 500 MG TAB PO SCH ×2 (10:28→21:39)
[2019-07-27] MEDS: hydroCHLOROthiazide 12.5 MG CAP PO SCH (10:28)
[2019-07-27] MEDS: LITHIUM CARBONATE 300 MG CAP PO SCH ×2 (10:28→21:39)
[2019-07-27] MEDS: BENZTROPINE 1 MG TAB PO SCH (21:39)
--- NOTE | 2019-07-28 09:31 | Progress Note ---
Subjective - Reason for Consult Consult date: 07/28/19 Reason for consult: Psychiatry Follow-up - Chief Complaint Chief complaint: "I was not sleeping" 39 y.o. AA male who presented to the ER for elevated BP. the patient was being discharged and he became aggressive with psychosis per the record. Today the patient was calm and cooperative, but delusional during the assessment. He is having somatic delusional about an left elbow injury. He wrapped up his elbow, but stated that his elbow is "fine." Per the staff, the patient is fixated on drinking water. He stated that he would like to be moved to another room so he can drink out of the sink like most "Africans." The patient's presentation have changed since yesterday. The patient denies SI/HI's and AVH's. He denies any side effects of his medication. Mental Status Exam - Vital signs Last Vital Signs Temp 97.9 F 07/28/19 01:00 Pulse 76 07/28/19 01:00 Resp 18 07/28/19 01:00 BP 138/77 07/28/19 01:00 Pulse Ox 100 07/28/19 01:00 - Exam Narrative exam: MSE: Appearance: calm, cooperative Behavior: regular eye contact Speech: regular rate and tone Mood: "okay" Affect: congruent to mood Thought Process: circumstantial Thought Content: denies SI/HI's and AVH's, delusional Motor Activity: lying in bed Cognition: A/O x 3 Insight: variable to fair Judgment: fair Assessment and Plan Impression: Unspecified Psychosis. Today the patient was calm and cooperative during the assessment. DDx: Schizophrenia, Bipolar DO with psychosis Recommendation/Plan: Reevaluate the patient's 1013 in 24 hours. Continue [place] 300 mg PO HS/[place] 600 mg PO daily for mood, Zyprexa 5 mg PO HS, modify Cogentin to 2 mg PO HS for EPS prevention, Depakote 1000 mg PO BID for mood. Discussed possible metabolic side effects of Zyprexa with the patient, he verbalized understanding. Discussed proper diet and exercise with the patient reference his abnormal Lipid Panel, he verbalized understanding. Dispo: The patient was referred to inpatient psy services. Staffed with Dr Aj Linares. Assessment and Plan Impression: Unspecified Psychosis. Today the patient was calm and cooperative during the assessment. DDx: Schizophrenia, Bipolar DO with psychosis Recommendation/Plan: Continue 1013, [place] 300 mg PO HS/[place] 600 mg PO daily for mood, Zyprexa 5 mg PO HS, Cogentin 2 mg PO HS for EPS prevention, and Depakote 1000 mg PO BID for mood. Discussed possible metabolic side effects of Zyprexa with the patient, he verbalized understanding. Monitor the patient's water intake. Dispo: The patient was referred to inpatient psy services. Will staff with Dr Aj Linares.
[2019-07-28] MEDS: DIVALPROEX DR 500 MG TAB PO SCH (11:00)
[2019-07-28] MEDS: amLODIPine 10 MG TAB PO SCH (11:00)
[2019-07-28] MEDS: LITHIUM CARBONATE 300 MG CAP PO SCH (11:00)
[2019-07-28] MEDS: hydroCHLOROthiazide 12.5 MG CAP PO SCH (11:00)
[2019-07-29] MEDS: BENZTROPINE 1 MG TAB PO SCH (00:02)
[2019-07-29] MEDS: DIVALPROEX DR 500 MG TAB PO SCH ×2 (00:03→09:33)
[2019-07-29] MEDS: LITHIUM CARBONATE 300 MG CAP PO SCH ×2 (00:03→09:33)
[2019-07-29] MEDS: hydroCHLOROthiazide 12.5 MG CAP PO SCH (09:33)
[2019-07-29] MEDS: amLODIPine 10 MG TAB PO SCH (09:33)
--- NOTE | 2019-07-29 09:45 | Progress Note ---
Subjective - Reason for Consult Consult date: 07/29/19 Reason for consult: Psychiatry Follow-up - Chief Complaint Chief complaint: "I need the water" 39 y.o. AA male who presented to the ER for elevated BP. the patient was being discharged and he became aggressive with psychosis per the record. Today the patient was calm and cooperative, but delusional during the assessment. He continue to have somatic delusions about his left elbow. Per the staff he wants to drink lots of water. His reason for consuming "lots' of water wasn't logical. He had to be redirected several times to kleep him on topic. He denies SI/HI's and AVH's. No indications of side effects from his medication. Mental Status Exam - Vital signs Last Vital Signs Temp 98.2 F 07/29/19 01:26 Pulse 89 07/29/19 01:26 Resp 18 07/29/19 01:26 BP 140/84 07/29/19 01:26 Pulse Ox 98 07/29/19 01:26 - Exam Narrative exam: MSE: Appearance: calm, malodorous Behavior: regular eye contact Speech: regular rate and tone Mood: "okay" Affect: congruent to mood Thought Process: circumstantial Thought Content: denies SI/HI's and AVH's, delusional Motor Activity: lying in bed Cognition: A/O x 3 Insight: variable Judgment: poor Assessment and Plan Impression: Unspecified Psychosis. Today the patient was calm, but malodorous during the assessment. DDx: Schizophrenia, Bipolar DO with psychosis Recommendation/Plan: Continue 1013, [place] 300 mg PO HS/[place] 600 mg PO daily for mood, Zyprexa 5 mg PO HS, Cogentin 2 mg PO HS for EPS prevention, and Depakote 1000 mg PO BID for mood. Discussed possible metabolic side effects of Zyprexa with the patient, he verbalized understanding. Monitor the patient's water intake. Dispo: The patient was referred to inpatient psy services. Will staff with Dr Aj Linares.
[2019-07-29 15:18] VITALS: BP 145/87
== END 2019-07-29 15:45 ==
LOC: EEVIPCON 03:22 → ED 03:22
DX: I10 Essential (primary) hypertension (principal); F25.0 Schizoaffective disorder, bipolar type; Z79.899 Other long term (current) drug therapy
CPT/HCPCS: 36415; 80048; 80061; 80076; 80164; 80178; 80307; 81001; 82150; 83036; 83690; 85025; 96372; 99285; J2060; 80320; G0480

== ENCOUNTER 2021-10-21 07:18 | Emergency (ER) | payer OTHER ==
[2021-10-21 07:39] VITALS: BP 153/100
--- NOTE | 2021-10-21 07:53 | Emergency Department Report ---
ED Extremity Problem HPI - General Chief complaint: Extremity Injury, Upper Stated complaint: UNDER ARMPIT PAIN Time Seen by Provider: 10/21/21 07:37 Source: patient Mode of arrival: Ambulatory Limitations: No Limitations - History of Present Illness Initial comments: 41-year-old -[place] male with a past medical history of schizoaffective disorder, bipolar disorder and hypertension presents to the ER today with complaints of left axilla discomfort and swelling. Patient states that his symptoms have been going on for "weeks". Patient states that he thought it would go away but has been persistent. He states that the pain is intermittent as well as the swelling. He states that he has not been taking anything for the pain. He states that his next appointment with his PCP is not until November 06. He states that this is his first time getting medical attention for his symptoms since it started. He states "it feels like something is flowing from underneath my arm". He denies any apparent bruising, redness, discharge, numbness, left upper extremity weakness, chest pain, shortness of breath, fever, chills or any additional symptoms. MD Complaint: other (Left axillar pain and swelling) -: week(s) Severity scale (0 -10): 3 - Related Data Home Medications Medication Instructions Recorded Confirmed Last Taken Benztropine [Cogentin] 2 mg PO BID 09/16/16 07/26/19 Unknown Hydrochlorothiazide 12.5 mg PO DAILY 09/16/16 07/26/19 Unknown amLODIPine [Norvasc] 10 mg PO DAILY 09/16/16 07/26/19 Unknown fluPHENAZine HCl [fluPHENAZine] 10 mg PO TID 09/16/16 07/26/19 Unknown Previous Rx's Medication Instructions Recorded Last Taken Type hydrOXYzine PAMOATE [Vistaril] 25 mg PO HS PRN #20 capsule 11/08/17 Unknown Rx hydroCHLOROthiazide [Hctz] 12.5 mg PO QDAY #30 capsule 07/26/19 Unknown Rx Naproxen [Naprosyn] 500 mg PO BID #20 tablet 10/21/21 Unknown Rx Allergies Allergy/AdvReac Type Severity Reaction Status Date / Time No Known Allergies Allergy Verified 09/16/16 21:41 ED Review of Systems ROS: Stated complaint: UNDER ARMPIT PAIN Other details as noted in HPI Comment: All other systems reviewed and negative Constitutional: denies: chills, fever Eyes: denies: eye pain, eye discharge, vision change ENT: denies: ear pain, throat pain, dental pain, hearing loss, epistaxis, congestion Respiratory: denies: cough, shortness of breath, SOB with exertion, SOB at rest, wheezing Cardiovascular: denies: chest pain, palpitations Gastrointestinal: denies: abdominal pain, nausea, vomiting, diarrhea, constipation, hematemesis, hematochezia Genitourinary: denies: urgency, dysuria Musculoskeletal: joint swelling, arthralgia Neurological: denies: headache, weakness, numbness, paresthesias, confusion, abnormal gait, vertigo Psychiatric: denies: anxiety, depression, auditory hallucinations, visual hallucinations, homicidal thoughts, suicidal thoughts Hematological/Lymphatic: denies: easy bleeding, easy bruising, swollen glands ED Past Medical Hx - Past Medical History Hx Hypertension: Yes Hx Psychiatric Treatment: Yes (bipolar, schizoaffective) - Social History Smoking Status: Never Smoker - Medications Home Medications: Home Medications Medication Instructions Recorded Confirmed Last Taken Type Benztropine [Cogentin] 2 mg PO BID 09/16/16 07/26/19 Unknown History Hydrochlorothiazide 12.5 mg PO DAILY 09/16/16 07/26/19 Unknown History amLODIPine [Norvasc] 10 mg PO DAILY 09/16/16 07/26/19 Unknown History fluPHENAZine HCl [fluPHENAZine] 10 mg PO TID 09/16/16 07/26/19 Unknown History hydrOXYzine PAMOATE [Vistaril] 25 mg PO HS PRN #20 capsule 11/08/17 07/26/19 Unknown Rx hydroCHLOROthiazide [Hctz] 12.5 mg PO QDAY #30 capsule 07/26/19 Unknown Rx Naproxen [Naprosyn] 500 mg PO BID #20 tablet 10/21/21 Unknown Rx ED Physical Exam - General Limitations: No Limitations General appearance: alert, in no apparent distress - Head Head exam: Present: atraumatic, normocephalic, normal inspection - Eye Eye exam: Present: normal appearance, PERRL, EOMI Pupils: Present: normal accommodation - Neck Neck exam: Present: normal inspection, full ROM. Absent: meningismus - Respiratory Respiratory exam: Present: normal lung sounds bilaterally. Absent: respiratory distress - Cardiovascular Cardiovascular Exam: Present: regular rate, normal rhythm, normal heart sounds - Extremities Exam Extremities exam: Present: normal inspection, full ROM, normal capillary refill. Absent: tenderness - Expanded Upper Extremity Exam Left General: Present: other (There is no tenderness to palpation to left axilla, no apparent swelling, no apparent lymphadenopathy, no erythema or bruising, no apparent rash,), normal inspection Shoulder Exam: Present: normal inspection, full ROM. Absent: tenderness, swelling, abrasion, laceration, ecchymosis, deformity, crepidus, dislocation, erythema Upper Arm exam: Present: normal inspection, full ROM. Absent: tenderness, swelling, abrasion, laceration, ecchymosis, deformity, crepidus, dislocation, erythema Neuro motor exam: Present: wrist extension intact, thumb opposition intact, thumb IP flexion intact, thumb adduction intact, fingers 2-5 abduction intact Neurosensory exam: Present: radial nerve intact, ulnar nerve intact, median nerve intact Vascular: Present: vascular compromise, normal capillary refill, radial pulse (Normal) - Back Exam Back exam: Present: normal inspection, full ROM - Neurological Exam Neurological exam: Present: alert, oriented X3, CN II-XII intact, normal gait. Absent: motor sensory deficit - Psychiatric Psychiatric exam: Present: normal affect, normal mood - Skin Skin exam: Present: intact ED Course Vital Signs 10/21/21 07:38 Temperature 99.1 F Pulse Rate 89 Respiratory 20 Rate Blood Pressure 153/100 [Right] O2 Sat by Pulse 100 Oximetry ED Medical Decision Making - Medical Decision Making 41-year-old -[place] male with a past medical history of schizoaffective disorder, bipolar disorder and hypertension presents to the ER today with complaints of left axilla discomfort and swelling. Patient states that his symptoms have been going on for "weeks". Patient states that he thought it would go away but has been persistent. He states that the pain is intermittent as well as the swelling. He states that he has not been taking anything for the pain. He states that his next appointment with his PCP is not until November 06. He states that this is his first time getting medical attention for his symptoms since it started. He states "it feels like something is flowing from underneath my arm". He denies any apparent bruising, redness, discharge, numbness, left upper extremity weakness, chest pain, shortness of breath, fever, chills or any additional symptoms. 0800: Patient is well-appearing and nontoxic. He is not in any significant distress. Examination of his left axillar/left upper extremity does not show any apparent signs of swelling, no tenderness to palpation, he has no pain with movement of his left shoulder nor does he have any limitation with movement of his left shoulder; he has no bruising, erythema or any signs of infection. Left upper extremity is neurovascularly intact. No apparent lymphadenopathy. No apparent rash. He has no chest pain or shortness of breath. Exact cause of patient's symptoms at this time unclear. Informed patient that I recommend that he follows up with his primary care doctor who may able to do soft tissue ultrasound or other testing to further evaluate his symptoms if it continues in the meantime we will give medication to help with pain. Patient expressed understanding of all instructions and agree with plan. Patient was stable at time of discharge. Critical care attestation.: If time is entered above; I have spent that time in minutes in the direct care of this critically ill patient, excluding procedure time. ED Disposition Clinical Impression: Left axillary pain Disposition: HOME / SELF CARE / HOMELESS Is pt being admited?: No Does the pt Need Aspirin: No Condition: Stable Instructions: Pain Without a Known Cause Additional Instructions: I recommend that you take the naproxen as prescribed to help with your pain and take as needed. You can keep the appointment with your primary care doctor for November 06 and I recommend discussing with him about the of pain if he continues. He may be able to order soft tissue ultrasound of the area or other testing to evaluate the area if necessary. Return to the ER if your symptoms changes or worsens in any way. Prescriptions: Naproxen [Naprosyn] 500 mg PO BID #20 tablet Referrals: PRIMARY CARE, [Referring] - 3-5 Days Time of Disposition: 07:53
== END 2021-10-21 08:08 | disposition home or self-care (01) ==
LOC: ED 07:18
DX: M79.622 Pain in left upper arm (principal); I10 Essential (primary) hypertension
CPT/HCPCS: 99282

== ENCOUNTER 2022-02-18 05:40 | Emergency (ER) | payer SELFPAY ==
[2022-02-18] MEDS ORDERED: AMOXICILLIN 500 MG CAP PO ONE (10:55)
[2022-02-18] MEDS ORDERED: IBUPROFEN 800 MG TAB PO ONE (10:55)
--- NOTE | 2022-02-18 10:57 | Emergency Department Report ---
ED General Adult HPI - General Chief complaint: Earache Stated complaint: BILATERAL EAR ISSUES Time Seen by Provider: 02/18/22 10:45 Source: patient Mode of arrival: Ambulatory Limitations: No Limitations - History of Present Illness Initial comments: Is a 41-year-old male history of hypertension and schizophrenia who presents for bilateral ear pain and aching for 1 week. Pain described at 4/10 with associated itching and ringing. Patient denies loss of hearing. There is been no fever or head congestion. Symptoms are exacerbated by movement and position. Symptoms are relieved by nothing tried. Denies dizziness, lightheadedness, no chest pain or shortness of breath. No nausea or vomiting. - Related Data Home Medications Medication Instructions Recorded Confirmed Last Taken Benztropine [Cogentin] 2 mg PO BID 09/16/16 07/26/19 Unknown Hydrochlorothiazide 12.5 mg PO DAILY 09/16/16 07/26/19 Unknown amLODIPine [Norvasc] 10 mg PO DAILY 09/16/16 07/26/19 Unknown fluPHENAZine HCl [fluPHENAZine] 10 mg PO TID 09/16/16 07/26/19 Unknown Previous Rx's Medication Instructions Recorded Last Taken Type hydrOXYzine PAMOATE [Vistaril] 25 mg PO HS PRN #20 capsule 11/08/17 Unknown Rx hydroCHLOROthiazide [Hctz] 12.5 mg PO QDAY #30 capsule 07/26/19 Unknown Rx Naproxen [Naprosyn] 500 mg PO BID #20 tablet 10/21/21 Unknown Rx Amoxicillin [Trimox CAP] 500 mg PO Q8H 7 Days #21 capsule 02/18/22 Unknown Rx Ibuprofen [Motrin 800 MG tab] 800 mg PO Q8HR PRN #30 tablet 02/18/22 Unknown Rx Allergies Allergy/AdvReac Type Severity Reaction Status Date / Time No Known Allergies Allergy Verified 09/16/16 21:41 ED Review of Systems ROS: Stated complaint: BILATERAL EAR ISSUES Other details as noted in HPI Constitutional: denies: chills, fever, malaise Eyes: denies: eye pain, eye discharge, vision change ENT: ear pain. denies: throat pain, hearing loss, epistaxis, congestion Respiratory: denies: cough, shortness of breath, wheezing Cardiovascular: denies: chest pain, palpitations Endocrine: no symptoms reported Gastrointestinal: denies: abdominal pain, nausea, diarrhea Genitourinary: denies: urgency, dysuria Musculoskeletal: denies: back pain, joint swelling, arthralgia Skin: denies: rash, lesions Neurological: denies: headache, weakness, paresthesias, vertigo Psychiatric: denies: anxiety, depression Hematological/Lymphatic: denies: easy bleeding, easy bruising ED Past Medical Hx - Past Medical History Previous Medical History?: Yes Hx Hypertension: Yes Hx Psychiatric Treatment: Yes (bipolar, schizoaffective) - Surgical History Past Surgical History?: No Hx Cholecystectomy: Yes - Social History Smoking Status: Never Smoker - Medications Home Medications: Home Medications Medication Instructions Recorded Confirmed Last Taken Type Benztropine [Cogentin] 2 mg PO BID 09/16/16 07/26/19 Unknown History Hydrochlorothiazide 12.5 mg PO DAILY 09/16/16 07/26/19 Unknown History amLODIPine [Norvasc] 10 mg PO DAILY 09/16/16 07/26/19 Unknown History fluPHENAZine HCl [fluPHENAZine] 10 mg PO TID 09/16/16 07/26/19 Unknown History hydrOXYzine PAMOATE [Vistaril] 25 mg PO HS PRN #20 capsule 11/08/17 07/26/19 Unknown Rx hydroCHLOROthiazide [Hctz] 12.5 mg PO QDAY #30 capsule 07/26/19 Unknown Rx Naproxen [Naprosyn] 500 mg PO BID #20 tablet 10/21/21 Unknown Rx Amoxicillin [Trimox CAP] 500 mg PO Q8H 7 Days #21 capsule 02/18/22 Unknown Rx Ibuprofen [Motrin 800 MG tab] 800 mg PO Q8HR PRN #30 tablet 02/18/22 Unknown Rx ED Physical Exam - General Limitations: No Limitations General appearance: alert, in no apparent distress - Head Head exam: Present: normocephalic, normal inspection - Eye Eye exam: Present: EOMI Pupils: Present: normal accommodation - ENT ENT exam: Present: normal orophraynx, mucous membranes moist - Expanded ENT Exam Expanded TM/Canal exam: Erythema: Right TM, Loss of Landmarks: Right TM, Canal Discharge: Left TM, Right TM Throat exam: Positive: normal inspection, other (Uvula midline no lesions no exudate). Negative: tonsillar erythema, tonsillomegaly, tonsillar exudate, R peritonsillar mass, L peritonsillar mass - Neck Neck exam: Present: normal inspection, full ROM. Absent: tenderness, lymphadenopathy - Respiratory Respiratory exam: Present: normal lung sounds bilaterally. Absent: respiratory distress, wheezes, stridor - Cardiovascular Cardiovascular Exam: Present: regular rate, normal rhythm, normal heart sounds. Absent: systolic murmur, diastolic murmur, rubs, gallop - GI/Abdominal GI/Abdominal exam: Present: soft, normal bowel sounds. Absent: distended, tenderness - Rectal Rectal exam: Present: deferred - Extremities Exam Extremities exam: Present: normal inspection, full ROM - Back Exam Back exam: Present: normal inspection, full ROM. Absent: CVA tenderness (R), CVA tenderness (L) - Neurological Exam Neurological exam: Present: alert, oriented X3, CN II-XII intact, normal gait - Expanded Neurological Exam Expanded Patient oriented to: Present: person, place, time - Psychiatric Psychiatric exam: Present: normal affect, normal mood. Absent: anxious, homicidal ideation, suicidal ideation - Skin Skin exam: Present: warm, dry, intact, normal color. Absent: rash ED Course Vital Signs 02/18/22 06:09 Temperature 98.2 F Pulse Rate 71 Respiratory 16 Rate Blood Pressure 158/129 [Right] O2 Sat by Pulse 99 Oximetry ED Medical Decision Making - Medical Decision Making This is straightforward AOM plan DC to home with prescriptions. Patient advised to take blood pressure medications upon arrival to home. Patient verbalized agreement and understanding with same patient DC'd home in stable condition at this time. Critical care attestation.: If time is entered above; I have spent that time in minutes in the direct care of this critically ill patient, excluding procedure time. ED Disposition Clinical Impression: AOM (acute otitis media) Qualifiers: Otitis media type: serous Laterality: right Recurrence: non-recurrent Qualified Code(s): H65.01 - Acute serous otitis media, right ear Disposition: HOME / SELF CARE / HOMELESS Is pt being admited?: No Does the pt Need Aspirin: No Condition: Stable Instructions: Otitis Media, Adult Additional Instructions: Take medications as prescribed, follow-up with your doctor in 2 to 3 days. Return to emergency department should symptoms worsen. Prescriptions: Ibuprofen [Motrin 800 MG tab] 800 mg PO Q8HR PRN #30 tablet PRN Reason: Pain Amoxicillin [Trimox CAP] 500 mg PO Q8H 7 Days #21 capsule Referrals: [facility] [Provider Group] - 3-5 Days Forms: Work/School Release Form(ED) Time of Disposition: 11:00
[2022-02-18 11:15] VITALS: BP 142/82
== END 2022-02-18 11:43 | disposition home or self-care (01) ==
LOC: ED 05:40
DX: H66.90 Otitis media, unspecified, unspecified ear (principal); I10 Essential (primary) hypertension; F31.9 Bipolar disorder, unspecified; Z90.49 Acquired absence of other specified parts of digestive tract; Z79.899 Other long term (current) drug therapy
CPT/HCPCS: 99282

== ENCOUNTER 2022-02-20 03:17 | Emergency (ER) | payer SELFPAY ==
[2022-02-20 03:26] VITALS: BP 163/105
[2022-02-20 06:57] LABS: Basophils % (Auto) 0.4 % (0.0-1.8); Eosinophils # (Auto) 0.2 K/mm3 (0.0-0.4); Eosinophils % (Auto) 1.5 % (0.0-4.3); Hematocrit 32.5 % (35.5-45.6); Hemoglobin 10.6 gm/dl (11.8-15.2); Lymphocytes % (Auto) 34.6 % (13.4-35.0); Mean Corpuscular HGB Conc 33 % (32-34); Mean Corpuscular Volume 84 fl (84-94); Monocytes # (Auto) 0.9 K/mm3 (0.0-0.8); Monocytes % (Auto) 7.5 % (0.0-7.3); Platelet Count 246 K/mm3 (140-440); Red Blood Count 3.88 M/mm3 (3.65-5.03); Red Cell Distribution Width 16.1 % (13.2-15.2)
[2022-02-20 07:11] LABS: Calcium 9.2 mg/dL (8.4-10.2)
== END 2022-02-20 23:37 | disposition left against medical advice (07) ==
LOC: ED 03:17
DX: R44.0 Auditory hallucinations (principal); Z53.21 Procedure and treatment not carried out due to patient leaving prior to being seen by health care provider
CPT/HCPCS: 36415; 80048; 80320; 85025; G0480

== ENCOUNTER 2022-02-20 08:49 | Emergency (ER) | payer SELFPAY ==
[2022-02-20 09:03] VITALS: BP 159/110
== END 2022-02-20 23:25 | disposition left against medical advice (07) ==
LOC: ED 08:49
DX: H92.09 Otalgia, unspecified ear (principal); Z53.21 Procedure and treatment not carried out due to patient leaving prior to being seen by health care provider